=== PATIENT | male | born 1945 | race Caucasian/White ===

== ENCOUNTER 2018-11-28 13:41 | Inpatient (IN) | payer MEDICARE ==
[~2018-11-28] VITALS: Ht 182.9 cm; Wt 103.2 kg
[2018-11-28] MEDS ORDERED: CEFTRIAXONE PMX 1GM/50ML 50 ML IVPB ONE (14:30)
--- NOTE | 2018-11-28 14:40 | NUR ---
PT PRESENTED TO ED WITH RIGHT BIG TOE WOUND THAT HE NOTICED YESTERDAY. PT IS A DIABETIC. PT A&OX4. PT PLACED IN ROOM AND P LACED ON BP AND CONT. PULSE OXIMETER. ASSESSMENT COMPLETED. CALL LIGHT IN REACH. PT DENIES PAIN AT THIS TIME.
[2018-11-28 14:45] LABS: BASOPHILS # (AUTO) 0.02 x10^3/uL (0-0.1); BASOPHILS % (AUTO) 0 % (0-1); EOSINOPHILS # (AUTO) 0.19 x10^3/uL (0-0.4); EOSINOPHILS % (AUTO) 2 % (1-7); LYMPHOCYTES # (AUTO) 1.06 x10^3/uL (1-3.4); LYMPHOCYTES % (AUTO) 11 % (22-44); MD NO; MEAN CORPUSCULAR HEMOGLOBIN 32.5 pg (27.5-34.5); MEAN CORPUSCULAR HGB CONC 34.1 g/dL (33.2-36.2); MEAN CORPUSCULAR VOLUME 95.4 fL (81-97); MEAN PLATELET VOLUME 7.5 fL (7.4-10.4); MONOCYTES # (AUTO) 0.81 x10^3/uL (0.2-0.8); MONOCYTES % (AUTO) 8 % (2-9); NEUTROPHILS # (AUTO) 7.84 x10^3/uL (1.8-6.8); NEUTROPHILS % (AUTO) 79 % (42-75); PLATELET COUNT 183 x10^3/uL (130-400); RED BLOOD COUNT 4.95 x10^6/uL (4.38-5.82)
--- NOTE | 2018-11-28 14:45 | NUR ---
BLOOD CULTURES DRAWN X 2.
[2018-11-28 14:52] LABS: ALBUMIN 3.7 g/dL (3.4-5.0); ANION GAP 4 mmol/L (5-15); CALCIUM 9.3 mg/dL (8.5-10.1); CHLORIDE 108 mmol/L (98-107); CREATININE 0.84 mg/dL (0.7-1.3)
--- NOTE | 2018-11-28 14:55 | NUR ---
ADMITTING HOSPITALIST AT BEDSIDE
[2018-11-28] MEDS ORDERED: SODIUM CHLORIDE FLUSH 10ML SYR IVF PRN (15:00)
[2018-11-28] MEDS ORDERED: GLUCAGON 1 MG IM PRN (15:30)
[2018-11-28] MEDS ORDERED: CARV12.543 PO (15:30)
[2018-11-28] MEDS ORDERED: ENALAPRILAT 1.25 MG/ML, 2ML IVPush PRN (15:30)
[2018-11-28] MEDS ORDERED: POLYETHYLENE GLYCOL 17 GM PACKET PO PRN (15:30)
[2018-11-28] MEDS ORDERED: DEXTROSE 4 GM TAB.CHEW PO PRN (15:30)
[2018-11-28] MEDS ORDERED: DEXTROSE 50%, 50ML SYRINGE IVPush PRN (15:30)
[2018-11-28] MEDS ORDERED: ACETAMINOPHEN 325 MG TABLET PO PRN (15:30)
[2018-11-28] MEDS ORDERED: ATOR40TA78 PO (15:31)
[2018-11-28] MEDS ORDERED: METF500T17 PO (15:31)
[2018-11-28] MEDS ORDERED: LISI-167 PO (15:32)
[2018-11-28] MEDS ORDERED: AMLO-150 PO (15:32)
[2018-11-28] MEDS ORDERED: ALLO100T30 PO (15:32)
[2018-11-28] MEDS ORDERED: CLOP75TA52 PO (15:33)
[2018-11-28] MEDS ORDERED: ASPI-496 PO (15:34)
[2018-11-28] MEDS ORDERED: CEFTRIAXONE PMX 1GM/50ML 50 ML ONE (15:36)
--- NOTE | 2018-11-28 15:41 | NUR ---
ANTIBIOTICS HUNG PER MD ORDERS
[2018-11-28 15:42] LABS: HCT (SEDRATE) 47.2 % (39.2-51.8)
[2018-11-28] MEDS ORDERED: VANCOMYCIN PER PHARMACY MC PRN (16:00)
--- NOTE | 2018-11-28 16:15 | NUR ---
report given to sonny mondragon.
[2018-11-28] MEDS ORDERED: GADOBUTROL 10 MMOL/10 ML PFS ONE (16:24)
--- NOTE | 2018-11-28 16:45 | NUR ---
PT BACK FROM MRI AND WILL BE TAKEN TO FLOOR
--- NOTE | 2018-11-28 17:15 | NUR ---
PT TAKEN UPSTAIRS.
[2018-11-28] MEDS ORDERED: PHARMACOKINETIC MONITORING MC PRN (18:00)
[2018-11-28] MEDS: INSULIN LISPRO 100 UNITS/ML, PEN SQ-INSULIN SCH ×2 (18:10→22:05)
[2018-11-28] MEDS ORDERED: ATOR40TA PO (18:10)
[2018-11-28 18:28] LABS: HEMOGLOBIN A1C 5.7 % (4.2-6.3)
[2018-11-28] MEDS: HEPARIN 5,000 UNITS/ML, 1ML SQ SCH (18:28)
[2018-11-28] MEDS: VANCOMYCIN 2,000 MG in SODIUM CHLORIDE 0.9% 500 ML IV SCH (18:35)
[2018-11-28 19:42] VITALS: BP_SYST 155; BP_SYST 160; BP_DIAS 92; BP_DIAS 99
[2018-11-28] MEDS: SODIUM CHLORIDE FLUSH 10ML SYR IVF SCH (21:07)
[2018-11-29 01:47] VITALS: BP 149/92
[2018-11-29] MEDS: HEPARIN 5,000 UNITS/ML, 1ML SQ SCH ×3 (02:07→20:26)
[2018-11-29 05:37] LABS: BASOPHILS # (AUTO) 0.03 x10^3/uL (0-0.1); BASOPHILS % (AUTO) 0 % (0-1); EOSINOPHILS # (AUTO) 0.31 x10^3/uL (0-0.4); EOSINOPHILS % (AUTO) 4 % (1-7); LYMPHOCYTES # (AUTO) 1.11 x10^3/uL (1-3.4); LYMPHOCYTES % (AUTO) 13 % (22-44); MD NO; MEAN CORPUSCULAR HEMOGLOBIN 32.3 pg (27.5-34.5); MEAN CORPUSCULAR HGB CONC 33.6 g/dL (33.2-36.2); MEAN PLATELET VOLUME 7.3 fL (7.4-10.4); MONOCYTES # (AUTO) 0.83 x10^3/uL (0.2-0.8); MONOCYTES % (AUTO) 10 % (2-9); NEUTROPHILS # (AUTO) 6.04 x10^3/uL (1.8-6.8); NEUTROPHILS % (AUTO) 73 % (42-75); PLATELET COUNT 175 x10^3/uL (130-400); RED BLOOD COUNT 4.82 x10^6/uL (4.38-5.82)
[2018-11-29 05:45] LABS: ANION GAP 3 mmol/L (5-15); CALCIUM 8.7 mg/dL (8.5-10.1); CHLORIDE 107 mmol/L (98-107)
[2018-11-29 05:46] LABS: CREATININE 0.75 mg/dL (0.7-1.3)
[2018-11-29 05:50] LABS: HEMOGLOBIN A1C 5.6 % (4.2-6.3)
[2018-11-29 06:46] VITALS: BP 155/87
[2018-11-29] MEDS: INSULIN LISPRO 100 UNITS/ML, PEN SQ-INSULIN SCH ×4 (07:00→21:00)
[2018-11-29] MEDS ORDERED: CARVEDILOL 12.5 MG TABLET PO SCH (09:00)
[2018-11-29] MEDS ORDERED: AMLODIPINE 5 MG TABLET PO SCH (09:00)
[2018-11-29] MEDS: ALLOPURINOL 300 MG TABLET PO SCH (09:26)
[2018-11-29] MEDS: CLOPIDOGREL 75 MG TABLET PO SCH (09:26)
[2018-11-29] MEDS: LISINOPRIL 20 MG TABLET PO SCH (09:26)
[2018-11-29] MEDS: ASPIRIN 81 MG TABLET EC PO SCH (09:27)
[2018-11-29] MEDS: ATORVASTATIN 40 MG TABLET PO SCH (09:27)
[2018-11-29] MEDS ORDERED: AMLODIPINE 5 MG TABLET PO ONE (10:00)
[2018-11-29] MEDS: VANCOMYCIN 2,000 MG in SODIUM CHLORIDE 0.9% 500 ML IV SCH (12:10)
[2018-11-29 12:40] VITALS: BP 124/79
[2018-11-29] MEDS: PIPERACILLIN/TAZO/PMX 3.375GM 50 ML IV SCH ×2 (14:31→20:25)
[2018-11-29] MEDS: SODIUM CHLORIDE FLUSH 10ML SYR IVF SCH (14:32)
[2018-11-29 19:41] VITALS: BP 158/89
[2018-11-30] MEDS: PIPERACILLIN/TAZO/PMX 3.375GM 50 ML IV SCH ×3 (01:38→13:20)
[2018-11-30] MEDS: SODIUM CHLORIDE FLUSH 10ML SYR IVF SCH ×3 (01:48→19:51)
[2018-11-30 02:30] VITALS: BP 159/78
[2018-11-30 04:35] LABS: BASOPHILS # (AUTO) 0.02 x10^3/uL (0-0.1); BASOPHILS % (AUTO) 0 % (0-1); EOSINOPHILS # (AUTO) 0.29 x10^3/uL (0-0.4); EOSINOPHILS % (AUTO) 3 % (1-7); LYMPHOCYTES % (AUTO) 13 % (22-44); MD NO; MEAN CORPUSCULAR HEMOGLOBIN 33.4 pg (27.5-34.5); MEAN CORPUSCULAR HGB CONC 34.3 g/dL (33.2-36.2); MEAN CORPUSCULAR VOLUME 97.5 fL (81-97); MEAN PLATELET VOLUME 7.6 fL (7.4-10.4); MONOCYTES # (AUTO) 0.72 x10^3/uL (0.2-0.8); MONOCYTES % (AUTO) 8 % (2-9); NEUTROPHILS # (AUTO) 6.42 x10^3/uL (1.8-6.8); NEUTROPHILS % (AUTO) 75 % (42-75); PLATELET COUNT 173 x10^3/uL (130-400); RED CELL DISTRIBUTION WIDTH 13.1 % (9.4-14.8)
[2018-11-30 04:46] LABS: ANION GAP 4 mmol/L (5-15); CALCIUM 8.6 mg/dL (8.5-10.1); CHLORIDE 108 mmol/L (98-107)
[2018-11-30] MEDS: CARVEDILOL 6.25 MG TABLET PO SCH ×2 (05:17→16:48)
[2018-11-30] MEDS: HEPARIN 5,000 UNITS/ML, 1ML SQ SCH ×3 (05:17→19:50)
[2018-11-30] MEDS: INSULIN LISPRO 100 UNITS/ML, PEN SQ-INSULIN SCH ×2 (07:09→10:56)
[2018-11-30 07:15] VITALS: BP 165/89
[2018-11-30] MEDS: ALLOPURINOL 300 MG TABLET PO SCH (07:38)
[2018-11-30] MEDS: AMLODIPINE 10 MG TAB PO SCH (07:38)
[2018-11-30] MEDS: CLOPIDOGREL 75 MG TABLET PO SCH (07:38)
[2018-11-30] MEDS: ASPIRIN 81 MG TABLET EC PO SCH (07:38)
[2018-11-30] MEDS: LISINOPRIL 20 MG TABLET PO SCH (07:38)
[2018-11-30] MEDS: ATORVASTATIN 40 MG TABLET PO SCH (07:38)
[2018-11-30 12:50] VITALS: BP 147/79
[2018-11-30] MEDS: AMPICILLIN/SULBACTAM 1,500 MG in SODIUM CHLORIDE 0.9% 50 ML IV SCH ×2 (15:58→21:52)
[2018-11-30 20:49] VITALS: BP 151/76
[2018-12-01 01:39] VITALS: BP 132/75
[2018-12-01] MEDS: AMPICILLIN/SULBACTAM 1,500 MG in SODIUM CHLORIDE 0.9% 50 ML IV SCH ×2 (03:44→09:48)
[2018-12-01] MEDS: HEPARIN 5,000 UNITS/ML, 1ML SQ SCH ×2 (03:45→09:48)
[2018-12-01 05:25] VITALS: BP 150/81
[2018-12-01] MEDS: CARVEDILOL 6.25 MG TABLET PO SCH (05:26)
[2018-12-01] MEDS: LISINOPRIL 20 MG TABLET PO SCH (07:23)
[2018-12-01] MEDS: ALLOPURINOL 300 MG TABLET PO SCH (07:23)
[2018-12-01] MEDS: CLOPIDOGREL 75 MG TABLET PO SCH (07:23)
[2018-12-01] MEDS: ASPIRIN 81 MG TABLET EC PO SCH (07:23)
[2018-12-01] MEDS: AMLODIPINE 10 MG TAB PO SCH (07:23)
[2018-12-01] MEDS: SODIUM CHLORIDE FLUSH 10ML SYR IVF SCH (07:23)
[2018-12-01] MEDS: ATORVASTATIN 40 MG TABLET PO SCH (07:23)
[2018-12-01 08:47] VITALS: BP 134/77
[2018-12-01 13:35] VITALS: BP 152/94
[2018-12-01] MEDS ORDERED: AMOX1TAB64 PO (14:27)
[2018-12-01] MEDS ORDERED: CARV6.252 PO (14:27)
== END 2018-12-01 14:45 | disposition home or self-care (01) | DRG 603 ==
LOC: ED 15:12 → EDIP 15:23 → 3NW 17:15 → DCLOUNGE 12-01 14:39
PROVIDERS: ADMIT Family Medicine; ATTEND Family Medicine
DX: L03.031 Cellulitis of right toe (principal); L03.116 Cellulitis of left lower limb; B96.89 Other specified bacterial agents as the cause of diseases classified elsewhere; E11.628 Type 2 diabetes mellitus with other skin complications; B96.20 Unspecified Escherichia coli [E. coli] as the cause of diseases classified elsewhere; E11.42 Type 2 diabetes mellitus with diabetic polyneuropathy; E78.5 Hyperlipidemia, unspecified; I10 Essential (primary) hypertension; I25.10 Atherosclerotic heart disease of native coronary artery without angina pectoris; M10.9 Gout, unspecified; M77.30 Calcaneal spur, unspecified foot; Z79.02 Long term (current) use of antithrombotics/antiplatelets; Z79.82 Long term (current) use of aspirin; Z79.84 Long term (current) use of oral hypoglycemic drugs; Z95.5 Presence of coronary angioplasty implant and graft; E11.621 Type 2 diabetes mellitus with foot ulcer; L97.519 Non-pressure chronic ulcer of other part of right foot with unspecified severity
CPT/HCPCS: 36415; 80048; 82040; 82962; 83036; 83605; 85025; 85651; 87040; 87070; 87077; 87186; 87205; 93005; 96365; A9585; G0378; J0696; J1644; J2543; J3370; J0295; J1815; J7040